=== PATIENT | female | born 1945 | race African-American/Black ===

== ENCOUNTER 2020-07-25 00:46 | Emergency (ER) | payer OTHER ==
[~2020-07-25] VITALS: Ht 167.6 cm; Wt 72.6 kg
[2020-07-25] MEDS ORDERED: MORPHINE SULFATE 4 MG/ML SYR/VIAL IV ONE (01:30)
[2020-07-25] MEDS ORDERED: ONDANSETRON HCL 4 MG/2 ML VIAL IV ONE (01:30)
[2020-07-25 02:36] LABS: Basophils # (auto) 0 10 ^3/uL (0-0.2); Basophils % (auto) 0.2 % (0.0-2.0); Eosinophils # (auto) 0 10 ^3/uL (0-0.8); Hemoglobin 9.6 g/dL (12.2-16.2); Red Cell Distribution Width 16.9 % (11.8-14.3)
[2020-07-25 02:38] LABS: Eosinophils % (auto) 0.2 % (0.0-7.0); Hematocrit 29.3 % (36.0-46.0); Lymphocytes # (auto) 1.3 10 ^3/uL (0.4-5.4); Mean Corpuscular Hemoglobin 27.6 pg (28.0-32.0); Mean Corpuscular Hgb Conc. 32.8 g/dL (32.0-36.0); Mean Corpuscular Volume 84.1 fL (80.0-100.0); Monocytes # (auto) 1.3 10 ^3/uL (0-1.3); Monocytes % (auto) 9.2 % (0.0-12.0); Neutrophils # (auto) 11.6 10 ^3/uL (1.6-8.6); Neutrophils % (auto) 81.4 % (37.0-80.0); Platelet Count (auto) 566 10^3/uL (140-450); Red Blood Cells 3.48 10^6/uL (4.0-5.20); White Blood Cell 14.3 10^3/uL (4.4-10.8)
[2020-07-25 02:43] LABS: Urine Amorphous Crystal FEW /hpf (None Seen); Urine Bacteria MANY /hpf (None Seen); Urine Blood Negative /uL (Negative); Urine Mucus FEW (None Seen); Urine Specific Gravity 1.014 (1.001-1.035); Urine WBC 84 /hpf (0 - 5); Urine WBC Clumps PRESENT /hpf (None Seen)
[2020-07-25 02:52] LABS: INR 1.18 (0.9-1.15); Partial Thromboplastin Time 30.6 sec (23.0-31.2)
[2020-07-25 02:58] LABS: Albumin 2.8 g/dL (3.4-5.0); Amylase 26 U/L (25-115); Anion Gap 9 (5-15); BUN/Creatinine Ratio 10.6; Blood Urea Nitrogen 11 mg/dL (7-18); Calcium 9.1 mg/dL (8.5-10.1); Carbon Dioxide 26 mmol/L (21-32); Chloride 99 mmol/L (98-107); GFR African American 67 mL/min; GFR Non-African American 55 mL/min; Glucose 132 mg/dL (74-106); Lipase 68 U/L (73-393); Magnesium 2.4 mg/dL (1.6-2.6); Potassium 3.5 mmol/L (3.5-5.1); Sodium 134 mmol/L (136-145)
[2020-07-25 03:02] LABS: Alanine Aminotransferase 30 U/L (13-56); Alkaline Phosphatase 90 U/L (45-117); Aspartate Aminotransferase 22 U/L (15-37); Bilirubin, Total 0.5 mg/dL (0.2-1.0)
[2020-07-25] MEDS ORDERED: AZITHROMYCIN 500MG/ 250ML 250 ML IV ONE (03:30)
[2020-07-25] MEDS ORDERED: CEFTRIAXONE SODIUM 2 GM in D5W 5% 50 ML IV ONE (03:30)
[2020-07-25] MEDS ORDERED: SODIUM CHLORIDE 0.9% 1,000 ML IV ONE (03:45)
[2020-07-25] MEDS ORDERED: cefTRIAXone 1GM/50ML D5W 100 ML IV ONE (04:01)
[2020-07-25 09:36] VITALS: BP 119/48
== END 2020-07-25 10:08 | disposition short-term general hospital (02) ==
LOC: ER 00:51
DX: A41.9 Sepsis, unspecified organism (principal); J18.9 Pneumonia, unspecified organism; N39.0 Urinary tract infection, site not specified; Z90.710 Acquired absence of both cervix and uterus; Z88.0 Allergy status to penicillin
CPT/HCPCS: 36415; 71045; 74176; 80053; 81001; 82150; 83605; 83690; 83735; 83880; 84484; 85025; 85610; 85730; 87426; 93005; 96365; 96366; 96368; 96375; 99285; J0456; J0696; J2270; J2405; J7060